=== PATIENT | male | born 1945 | race Caucasian/White ===

== ENCOUNTER → 2020-02-18 | Day surgery (SDC) | payer MEDICARE ==
[~2020-02-18] VITALS: Ht 167.6 cm; Wt 158.8 kg
[2020-02-18 11:09] VITALS: BP 156/102
--- NOTE | 2020-02-18 12:00 | NUR ---
MIDLINE placed, without issue, in patient's left upper arm (basilic). PROTEGO MIDLINE, 5 Fr., REF [phone], LOT [id number].
[2020-02-18 12:23] VITALS: BP 149/99
== END | disposition home or self-care (01) ==
LOC: SSTAY O 10:34
PROVIDERS: ATTEND Urology
DX: N39.0 Urinary tract infection, site not specified (principal)
CPT/HCPCS: 76937